=== PATIENT | female | born 1955 | race Two or more races ===

== ENCOUNTER 2016-07-18 10:05 | Emergency (ER) | payer OTHER ==
--- NOTE | 2016-07-18 10:39 | PDOC ---
History of Present Illness <Alice Schaffer - Last Filed: 07/18/16 10:59> - General History Source: Patient Exam Limitations: No Limitations <Giovanna Blake - Last Filed: 07/20/16 13:30> - General Stated Complaint: CHEST PAIN Time Seen by Provider: 07/18/16 10:10 - History of Present Illness Initial Comments: 07/18/16 11:00 The patient is a 61 year old female with significant past medical history of diverticulosis, arthritis, chronic back pain, multiple disc herniations, fibromyalgia, irritable bowel syndrome, bipolar disorder and OCD who presents to the emergency department with chest pain for 10 days. The patient states that her pain has been constant for the last week and is localized to the left chest. The pain radiates to her left arm. She denies associated lightheadedness , palpitations, or shortness of breath. She denies any dyspnea on exertion. The patient was admitted to [facility] in May 2016 for sepsis and had a stress test that was normal after having an elevated troponin level. The patient has been at a rehab center since discharge from [facility]. She denies any leg swelling or calf pain. The patient denies abdominal pain, nausea, vomiting, and diarrhea. She denies any fevers or chills. She denies recent sick contacts. She is a non- smoker. The patient is a poor historian. (Alice Schaffer) Past History <Alice Schaffer - Last Filed: 07/18/16 10:59> - Past Medical History Anemia: No Asthma: No Cancer: No Cardiac Disorders: No CVA: No COPD: No CHF: No Dementia: No Diabetes: No GI Disorders: Yes (gerd,diverticulitis,,ibs,hiatal hernia,lactose intolerance; ESO ULCER) Disorders: No HTN: No Hypercholesterolemia: No Liver Disease: No Seizures: No Thyroid Disease: No - Surgical History Abdominal Surgery: No Appendectomy: No Cardiac Surgery: No Cholecystectomy: Yes Lung Surgery: Yes (NODULE REMOVAL HISTOPLASMOSIS?) Neurologic Surgery: No Orthopedic Surgery: No - Psycho/Social/Smoking Cessation Hx Anxiety: No Suicidal Ideation: No Smoking Status: No Smoking History: Former smoker Have you smoked in the past 12 months: No If you are a former smoker, when did you quit?: 1970 'Breaking Loose' booklet given: 06/04/16 Hx Alcohol Use: Yes (in past, not actively drinking) Drug/Substance Use Hx: No Substance Use Type: Alcohol Hx Substance Use Treatment: Yes (15 years ago) <Giovanna Blake - Last Filed: 07/20/16 13:30> - Past Medical History Allergies/Adverse Reactions: Allergies Allergy/AdvReac Type Severity Reaction Status Date / Time ciprofloxacin [From Cipro] Allergy Severe Verified 06/06/16 14:46 Sulfa (Sulfonamide Allergy Severe Hives Verified 06/06/16 14:46 Antibiotics) ampicillin Allergy Intermediate Verified 06/06/16 14:21 gluten AdvReac Mild Verified 06/06/16 14:46 lactose AdvReac Mild Verified 06/06/16 14:45 Home Medications: Ambulatory Orders Clonazepam 0.5 mg PO TID PRN 12/29/13 Zolpidem Tartrate [Ambien] 10 mg PO HS #5 tablet 12/01/14 Divalproex *ER* [Depakote *ER* -] 500 mg PO DAILY 12/13/14 Cyclobenzaprine HCl [Flexeril -] 10 mg PO BID 08/25/15 Famotidine [Pepcid] 20 mg PO HS #0 tablet 08/25/15 Hyoscyamine Sulfate [Levsin 0.125MG Tablet -] 0.125 mg PO Q4H 08/25/15 Topiramate 100 mg PO TID 11/28/15 Venlafaxine HCl ER [Effexor Xr -] 75 mg PO DAILY 11/28/15 Oxycodone HCl/Acetaminophen [Percocet 10-325 mg Tablet] 1 each PO TID 06/04/16 Zolpidem Tartrate [Ambien] 10 mg PO HS 06/04/16 Cefuroxime Axetil [Ceftin -] 500 mg PO BID #10 tablet 06/12/16 Clonazepam [Klonopin -] 0.5 mg PO BID PRN #0 tablet MDD 2 06/12/16 Acetaminophen W/ Codeine #3 [Tylenol # 3 -] 1 tab PO Q6H PRN #12 tablet MDD 4 Cardiac Specific PMH - Complaint Specific PMHX Pacemaker: No <Giovanna Blake - Last Filed: 07/20/16 13:30> Review of Systems - Review of Systems Able to Perform ROS?: Yes <Alice Schaffer - Last Filed: 07/18/16 10:59> <HaydenGiovanna - Last Filed: 07/20/16 13:30> - Review of Systems Comments:: 07/18/16 11:00 GENERAL/CONSTITUTIONAL: No: fever, chills, weakness, loss of appetite. HEAD, EYES, EARS, NOSE AND THROAT: No: change in vision, ear pain, discharge, sore throat, throat swelling. CARDIOVASCULAR: +Chest pain. No: lightheadedness, palpitations, syncope RESPIRATORY: No: cough, shortness of breath, wheezing, hemoptysis, stridor. GASTROINTESTINAL: No: nausea, vomiting, abdominal cramping, diarrhea, rectal bleeding, constipation. GENITOURINARY: No: dysuria, hematuria, frequency, urgency, flank pain. MUSCULOSKELETAL: No: back pain, neck pain, joint pain, muscle swelling or pain SKIN AND BREASTS: No: lesions, pallor, rash or easy bruising. NEUROLOGIC: No: headache, vertigo, paresthesias, weakness ENDOCRINE: No: unexplained weight gain or loss HEMATOLOGIC/LYMPHATIC: No: anemia, easy bleeding, swelling nodes (Alice Schaffer) *Physical Exam <Alice Schaffer - Last Filed: 07/18/16 10:59> <HaydenGiovanna - Last Filed: 07/20/16 13:30> - Vital Signs Last Vital Signs Temp Pulse Resp BP Pulse Ox 98.2 F 76 16 119/81 96 07/18/16 15:14 07/18/16 15:14 07/18/16 15:14 07/18/16 15:14 07/18/16 15:14 - Physical Exam Comments: 07/18/16 11:00 GENERAL: The patient is in no acute distress. HEAD: Normal with no signs of trauma. EYES: PERRLA, EOMI, sclera anicteric, conjunctiva clear. ENT: Ears normal, nares patent, oropharynx clear without exudates. Moist mucous membranes. NECK: Normal range of motion, supple without lymphadenopathy, JVD, or masses. LUNGS: Breath sounds equal, clear to auscultation bilaterally. No wheezes, and no crackles. HEART: Regular rate and rhythm, normal S1 and S2 without murmur, rub or gallop. ABDOMEN: +Obese. Soft, nontender, normoactive bowel sounds. No guarding, no rebound. EXTREMITIES: Normal range of motion, no edema. No clubbing or cyanosis. No erythema, or tenderness. NEUROLOGICAL: Cranial nerves II through XII grossly intact. Normal speech. No focal neurological deficits. MUSCULOSKELETAL: Back non-tender to palpation, no CVA tenderness SKIN: Warm, Dry, normal turgor, no rashes or lesions noted. (Alice Schaffer) Heart Score/ECG Review <Alice Schaffer - Last Filed: 07/18/16 10:59> #1 ECG reviewed & interpreted by me at: 10:40 <Giovanna Blake - Last Filed: 07/20/16 13:30> #1 07/18/16 10:40 Twelve-lead EKG was performed and reviewed by me. There is normal sinus rhythm with a normal rate. The axis is normal. The intervals are normal. There are no ST or T wave abnormalities. Impression: Normal twelve-lead EKG (Giovanna Blake) ED Treatment Course - LABORATORY CBC & Chemistry Diagram: 07/18/16 10:11 07/18/16 10:44 <SarbjitAlice - Last Filed: 07/18/16 10:59> - LABORATORY CBC & Chemistry Diagram: 07/18/16 10:11 07/18/16 10:44 <Giovanna Blake - Last Filed: 07/20/16 13:30> - ADDITIONAL ORDERS Additional order review: 07/18/16 10:11 RBC 3.60 MCV 90.2 MCHC 32.1 RDW 16.5 H MPV 7.4 L Neutrophils % 40.2 L Lymphocytes % 46.7 H Monocytes % 8.9 Eosinophils % 3.9 Basophils % 0.3 D - RADIOLOGY Radiology Studies Ordered: Category Date Time Status CHEST CTA [CT] Stat CT Scan 07/18/16 12:01 Completed CHEST X-RAY PORTABLE* [RAD] Stat Radiology 07/18/16 10:12 Completed - Medications Given in the ED: ED Medications Discontinued Medications Generic Name Dose Route Start Last Admin Trade Name Freq PRN Reason Stop Dose Admin Morphine Sulfate 2 mg 07/18/16 11:24 07/18/16 11:32 Morphine Injection - IVPUSH 07/18/16 11:25 2 mg ONCE ONE Administration Medical Decision Making <Alice Schaffer - Last Filed: 07/18/16 10:59> <Giovanna Blake - Last Filed: 07/20/16 13:30> - Medical Decision Making 07/18/16 10:34 A portion of this note was documented by scribe services under my direction. I have reviewed the details of the note, within reason, and agree with the documentation with the following case summary and management plan written by me. Nursing documentation reviewed and incorporated into medical decision making 07/18/16 10:37 This is a 61-year-old female with a history of bipolar disorder, arthritis, fibromyalgia who had a recent admission for sepsis related to a urinary tract infection, pneumonia, complicated by positive troponin and upper GI bleed. During that hospitalization, patient had a pharmacological stress test which was negative Patient presents emergency department with a complaint of chest pain. Patient's chest pain began approximately 10 days ago, located in the left shoulder, radiates down to the chest. No associated shortness of breath. Patient status post recent cardiac workup which was negative including a Persantine stress test Differential includes cardiac ischemia, pe, asthma exacerbation, pneumonia, pneumothorax, pleural effusion, costochondritis, pericarditis, GERD. Will do labs Will do CXR Will contact Cardiology Will send D dimer 07/18/16 11:05 07/18/16 11:50 Laboratory Tests 07/18/16 07/18/16 07/18/16 10:11 10:11 10:44 WBC 6.4 D Hgb 10.4 L D Hct 32.5 D Plt Count 264 Neutrophils % 40.2 L Lymphocytes % 46.7 H INR 0.96 Sodium 141 Potassium 5.0 D Chloride 108 H Carbon Dioxide 24 BUN 25 H D Creatinine 0.9 Random Glucose 79 AST 217 H D ALT 20 D Creatine Kinase 58 Troponin I < 0.02 CXR: NML 07/18/16 11:50 07/18/16 14:29 CTA negative for PE Call placed to Dr wadsworth to review this case Pt states pain has improved Pt points mostly to the left shoulder as the site of her pain Will discharge to home PT tried following up with Dr Humphrey yesterday but was unable to make an appointment Pt will follow up in the next day Return to the ER for any other concerns or complaint Tylenol #3 for pain as needed Clinical impression: shoulder pain, atypical chest wall pain (Giovanna Blake) *DC/Admit/Observation/Transfer <Alice Schaffer - Last Filed: 07/18/16 10:59> - Discharge Dispostion Admit: No <Giovanna Blake - Last Filed: 07/20/16 13:30> Diagnosis at time of Disposition: Shoulder pain, left Qualifiers: Chronicity: acute Qualified Code(s): M25.512 - Pain in left shoulder - Discharge Dispostion Disposition: HOME Condition at time of disposition: Improved - Prescriptions Prescriptions: Acetaminophen W/ Codeine #3 [Tylenol # 3 -] 1 tab PO Q6H PRN #12 tablet MDD 4 PRN Reason: Pain - Referrals Referrals: Zachary Humphrey MD [Primary Care Provider] - - Patient Instructions Printed Discharge Instructions: DI for Shoulder Pain, DI for Atypical Chest Pain Additional Instructions: Gisselle Thank you for coming to the ER Please review your results Please follow up with your primary care physician within 2 days Please take medications as prescribed Please return to the ER for any other concerns or complaints - Attestations Scribe Attestion: 07/18/16 11:00 Documentation prepared by Alice Schaffer, acting as medical research scientist for Giovanna Blake MD. (Alice Schaffer)
[2016-07-18 10:49] LABS: BASOPHIL 0.3 % (0-2.0); EOSINOPHIL 3.9 % (0-4.5); MCHC 32.1 g/dl (32.0-36.0); MEAN CELL VOLUME 90.2 fl (80-96); MEAN PLT VOLUME 7.4 fl (7.5-11.1); NEUTROPHILS 40.2 % (42.8-82.8); PLATELET COUNT 264 K/MM3 (134-434); RDW 16.5 % (11.6-15.6); WHITE BLOOD COUNT 6.4 K/mm3 (4.0-10.0)
[2016-07-18 11:01] LABS: INR 0.96 (0.82-1.09); PROTHROMBIN TIME (PATIENT) 10.6 SEC (9.98-11.88)
[2016-07-18 11:23] LABS: ALBUMIN 3.2 g/dl (3.4-5.0); ANION GAP 9 (8-16); BILIRUBIN,TOTAL 0.2 mg/dL (0.2-1.0); CALCIUM 8.6 mg/dL (8.5-10.1); CO2 24 mmol/L (21-32); CREATININE 0.9 mg/dL (0.55-1.02); GLUCOSE,RANDOM 79 mg/dL (74-106); SGPT/ALT 20 U/L (12-78); TOT PROT 6.8 g/dl (6.4-8.2)
[2016-07-18] MEDS ORDERED: morphine CARPU-JECT 4 MG/1 ML DISP.SYRIN IVPUSH ONE (11:24)
[2016-07-18 11:26] LABS: ALK PHOS 99 U/L (45-117); TROPONIN I < 0.02 ng/ml (0.00-0.05)
[2016-07-18 11:28] LABS: MAGNESIUM 2.5 mg/dL (1.8-2.4); SGOT/AST 217 U/L (15-37)
[2016-07-18] MEDS ORDERED: morphine CARPU-JECT 2 MG/1 ML DISP.SYRIN ONE (11:28)
[2016-07-18 12:02] VITALS: BMI 35.4
--- NOTE | 2016-07-18 13:58 | EKG ---
Test Reason : Blood Pressure : / mmHG Vent. Rate : 086 BPM Atrial Rate : 086 BPM P-R Int : 140 ms QRS Dur : 082 ms QT Int : 362 ms P-R-T Axes : 027 027 026 degrees QTc Int : 433 ms NORMAL SINUS RHYTHM LOW VOLTAGE QRS BORDERLINE ECG WHEN COMPARED WITH ECG OF 06-JUN-2016 08:57, NONSPECIFIC T WAVE ABNORMALITY HAS REPLACED INVERTED T WAVES IN INFERIOR LEADS Confirmed by RICKEY DUKES, STERLING ([id number]) on 07/18/2016 1:57:43 PM Referred By: Confirmed By:STERLING LANG MD
[2016-07-18 15:16] VITALS: BP 119/81; PULSE 76; TEMP 98.2
== END 2016-07-18 15:24 | disposition home or self-care (01) ==
LOC: JER 10:05
PROC: 3E033NZ Introduction of Analgesics, Hypnotics, Sedatives into Peripheral Vein, Percutaneous Approach (ICD-10-PCS; principal; 2016-07-18)
DX: M25.512 Pain in left shoulder (principal); F31.9 Bipolar disorder, unspecified; M79.7 Fibromyalgia; K57.90 Diverticulosis of intestine, part unspecified, without perforation or abscess without bleeding; Z87.891 Personal history of nicotine dependence
CPT/HCPCS: 36415; 71010-TC; 71275-TC; 80053; 82550; 83735; 84484; 85025; 85379; 85610; 93005; 93010; 96374; 99281-25

== ENCOUNTER 2016-07-27 13:37 | Emergency (ER) | payer OTHER ==
[2016-07-27 13:52] VITALS: TEMP 97.7; BMI 37.0
[2016-07-27] MEDS ORDERED: ONDANSETRON 4 MG/2 ML VIAL IVPUSH ONE (14:40)
[2016-07-27] MEDS ORDERED: FAMOTIDINE 20 MG/50 ML IVPB 50 ML IVPB ONE ×2 (14:40→15:00)
[2016-07-27] MEDS ORDERED: SODIUM CHLORIDE 1,000 ML IV STA ×2 (14:40→17:53)
--- NOTE | 2016-07-27 14:45 | PDOC ---
History of Present Illness - General History Source: Patient Exam Limitations: No Limitations - History of Present Illness Initial Comments: CHIEF COMPLAINT: 61 y/o afebrile female c/o nausea and vomiting for the past few hours. HISTORY OF PRESENT ILLNESS: The patient denies f/c, PATTERSON, CP, SOB, abd pain, back pain, hematuria, dysuria. Vital signs on arrival are notable for BP of 155/109. REVIEW OF SYSTEMS: GENERAL/CONSTITUTIONAL: No fever/chills. No weakness. No weight change. HEAD, EYES, EARS, NOSE AND THROAT: No change in vision. No ear pain or discharge. No sore throat. CARDIOVASCULAR: No chest pain or shortness of breath. RESPIRATORY: No cough, wheezing, or hemoptysis. GASTROINTESTINAL: +nausea, vomiting. +feeling of diarrhea. GENITOURINARY: No dysuria, frequency, or change in urination. MUSCULOSKELETAL: No joint or muscle swelling or pain. No neck or back pain. SKIN: No rash or easy bruising. NEUROLOGIC: No headache, vertigo, loss of consciousness, or loss of sensation. PHYSICAL EXAM: GENERAL: The patient is awake, alert, and fully oriented, with vomit down the front of her face. HEAD: Normal with no signs of trauma. ENT: Pupils equal, round and reactive to light, extraocular movements intact, sclera anicteric, conjunctiva clear. Neck supple. LUNGS: Clear to auscultation bilaterally. Normal excursion. No respiratory distress or use of accessory muscles. CV: RRR, S1/S2, no MRG. Cap refill < 2 sec. ABDOMEN: Soft, non-distended, TTP of epigastric region. Normal BS x. 4. EXTREMITIES: Normal range of motion, no edema. NEUROLOGICAL: Normal speech, normal gait. CN II-XII grossly intact. PSYCH: Normal mood, normal affect. SKIN: Warm, dry, normal turgor, no rashes or lesions noted. <Berenice Bangura - Last Filed: 07/27/16 18:15> <Devin Sanchez - Last Filed: 07/27/16 20:30> - General Chief Complaint: Nausea/Vomiting Stated Complaint: ABD PAIN, VOMITING Time Seen by Provider: 07/27/16 13:59 Past History - Past Medical History Anemia: No Asthma: No Cancer: No Cardiac Disorders: No CVA: No COPD: No CHF: No Dementia: No Diabetes: No GI Disorders: Yes (gerd,diverticulitis,,ibs,hiatal hernia,lactose intolerance; ESO ULCER) Disorders: No HTN: No Hypercholesterolemia: No Liver Disease: No Seizures: No Thyroid Disease: No - Surgical History Abdominal Surgery: No Appendectomy: No Cardiac Surgery: No Cholecystectomy: Yes Lung Surgery: Yes (NODULE REMOVAL HISTOPLASMOSIS?) Neurologic Surgery: No Orthopedic Surgery: No - Psycho/Social/Smoking Cessation Hx Anxiety: No Suicidal Ideation: No Smoking Status: No Smoking History: Never smoked Have you smoked in the past 12 months: No If you are a former smoker, when did you quit?: 1970 'Breaking Loose' booklet given: 06/04/16 Hx Alcohol Use: No Drug/Substance Use Hx: No Substance Use Type: Alcohol Hx Substance Use Treatment: Yes (15 years ago) <Berenice Bangura - Last Filed: 07/27/16 18:15> <Devin Sanchez - Last Filed: 07/27/16 20:30> - Past Medical History Allergies/Adverse Reactions: Allergies Allergy/AdvReac Type Severity Reaction Status Date / Time ciprofloxacin [From Cipro] Allergy Severe Verified 07/27/16 13:52 Sulfa (Sulfonamide Allergy Severe Hives Verified 07/27/16 13:52 Antibiotics) ampicillin Allergy Intermediate Verified 07/27/16 13:52 gluten AdvReac Mild Verified 07/27/16 13:52 lactose AdvReac Mild Verified 07/27/16 13:52 Home Medications: Ambulatory Orders Clonazepam 0.5 mg PO TID PRN 12/29/13 Divalproex *ER* [Depakote *ER* -] 250 mg PO DAILY 12/13/14 Cyclobenzaprine HCl [Flexeril -] 10 mg PO BID 08/25/15 Famotidine [Pepcid] 20 mg PO HS #0 tablet 08/25/15 Hyoscyamine Sulfate [Levsin 0.125MG Tablet -] 0.125 mg PO QID 08/25/15 Venlafaxine HCl ER [Effexor Xr -] 75 mg PO DAILY 11/28/15 Zolpidem Tartrate [Ambien] 10 mg PO HS 06/04/16 Acetaminophen W/ Codeine #3 [Tylenol # 3 -] 1 tab PO Q6H PRN #12 tablet MDD 4 Ascorbate Calcium [Vitamin C] 500 mg PO TID 07/27/16 Docusate Sodium [Colace -] 100 mg PO HS 07/27/16 Famotidine [Pepcid -] 20 mg PO BID #10 tablet 07/27/16 Ferrous Sulfate [Feosol] 325 mg PO TID 07/27/16 Ondansetron [Zofran Odt -] 4 mg SL TID #10 od.tablet 07/27/16 Oxycodone HCl [Roxicodone -] 5 mg PO Q8H PRN 07/27/16 *Physical Exam - Vital Signs Last Vital Signs Temp Pulse Resp BP Pulse Ox 97.7 F 76 20 155/109 95 07/27/16 13:51 07/27/16 13:51 07/27/16 13:51 07/27/16 13:51 07/27/16 13:51 <Berenice Bangura - Last Filed: 07/27/16 18:15> - Vital Signs Last Vital Signs Temp Pulse Resp BP Pulse Ox 97.7 F 95 H 19 140/70 99 07/27/16 13:51 07/27/16 17:50 07/27/16 17:50 07/27/16 17:50 07/27/16 17:50 <Devin Sanchez - Last Filed: 07/27/16 20:30> ED Treatment Course - LABORATORY CBC & Chemistry Diagram: 07/27/16 14:55 07/27/16 14:55 <Berenice Bangura - Last Filed: 07/27/16 18:15> - LABORATORY CBC & Chemistry Diagram: 07/27/16 14:55 07/27/16 14:55 - ADDITIONAL ORDERS Additional order review: Laboratory Results 07/27/16 07/27/16 19:25 14:55 Sodium 141 Potassium 4.5 Chloride 104 Carbon Dioxide 26 Anion Gap 11 BUN 28 H Creatinine 1.0 Creat Clearance w eGFR 56.00 Random Glucose 141 H D Calcium 9.6 Total Bilirubin 0.4 D AST 23 D ALT 27 D Alkaline Phosphatase 104 Total Protein 7.8 Albumin 3.9 D Urine Color Ltyellow Urine Appearance Clear Urine pH 7.0 D Ur Specific [place] 1.014 Urine Protein Negative Urine Glucose (UA) Negative Urine Ketones 1+ H Urine Blood Negative Urine Nitrite Negative Urine Bilirubin Negative Urine Urobilinogen Negative Ur Leukocyte Esterase 1+ H D 07/27/16 14:55 RBC 4.03 MCV 88.5 MCHC 32.9 RDW 16.2 H MPV 7.5 Neutrophils % 74.9 D Lymphocytes % 17.2 D Monocytes % 5.8 Eosinophils % 0.9 Basophils % 1.2 D - Medications Given in the ED: ED Medications Discontinued Medications Generic Name Dose Route Start Last Admin Trade Name Martin PRN Reason Stop Dose Admin Diphenhydramine HCl 25 mg 07/27/16 17:53 07/27/16 18:05 Benadryl Injection - IVPUSH 07/27/16 17:54 25 mg ONCE ONE Administration Famotidine/Sodium Chloride 50 mls @ 100 mls/hr 07/27/16 14:40 07/27/16 15:00 Pepcid 20 Mg Premixed Ivpb - IVPB 07/27/16 15:09 100 mls/hr ONCE ONE Administration Sodium Chloride 1,000 mls @ 1,000 mls/hr 07/27/16 14:40 07/27/16 15:00 Normal Saline - IV 07/27/16 15:39 1,000 mls/hr ASDIR STA Administration Pantoprazole Sodium 40 mg/ 100 mls @ 200 mls/hr 07/27/16 15:08 07/27/16 16:15 Sodium Chloride IVPB 07/27/16 15:37 200 mls/hr ONCE ONE Administration Sodium Chloride 1,000 mls @ 1,000 mls/hr 07/27/16 17:53 07/27/16 18:05 Normal Saline - IV 07/27/16 18:52 1,000 mls/hr ASDIR STA Administration Metoclopramide HCl 10 mg 07/27/16 17:53 07/27/16 18:05 Reglan Injection - IVPB 07/27/16 17:54 10 mg ONCE ONE Administration Ondansetron HCl 4 mg 07/27/16 14:40 07/27/16 15:00 Zofran Injection IVPUSH 07/27/16 14:41 4 mg ONCE ONE Administration <Devin Sanchez - Last Filed: 07/27/16 20:30> Medical Decision Making - Medical Decision Making A/P: 61 y/o afebrile female with nausea and vomiting for the past few hours. Plan is as follows: 1. Labs 2. UA 3. IV fluids 4. IV zofran and pepcid Labs unremarkable. The patient states she now feels much better and is no longer vomiting. Will discharge to home with rx for zofran and pepcid. Instructed her to only intake fluids for the next few hours and then slowly advance bland diet. Instructed her to return to the ER with any worsening or concerning symptoms. The patient verbalizes understanding of all instructions, has no further questions and is awaiting discharge. As the nurse and I brought the discharge paperwork into the room the patient began vomiting again. Will give IV reglan and benadryl and another bag of IV fluids. I am signing this patient out to my colleague: BRENDA Sanchez In brief, this patient is being seen in the ED for a chief complaint of: vomiting and epigastric pain I have completed the initial assessment interview note and have ordered: labs, IV fluids, IV zofran, pepcid, protonix, reglan, benadryl I have reviewed the following results: labs Pending results are: none Please call the PCP: Zachary Humphrey Plan for disposition is as follows: Reassess after reglan and benadryl; po challenge <Berenice Bangura - Last Filed: 07/27/16 18:15> *DC/Admit/Observation/Transfer <Berenice Bangura - Last Filed: 07/27/16 18:15> <Devin Sanchez - Last Filed: 07/27/16 20:30> Diagnosis at time of Disposition: Vomiting Qualifiers: Vomiting type: unspecified Vomiting Intractability: non-intractable Nausea presence: with nausea Qualified Code(s): R11.2 - Nausea with vomiting, unspecified - Discharge Dispostion Disposition: HOME Condition at time of disposition: Improved - Prescriptions Prescriptions: Famotidine [Pepcid -] 20 mg PO BID #10 tablet Ondansetron [Zofran Odt -] 4 mg SL TID #10 od.tablet - Referrals Referrals: Zachary Humphrey MD [Primary Care Provider] - - Patient Instructions Printed Discharge Instructions: DI for Vomiting -- Adult, [place] Diet Additional Instructions: Discharge instructions: -Take zofran and pepcid as prescribed -Take small sips of room temperature liquids -In 6-8 hours, if feeling ok, slowly advance bland diet. -Return to the ER with any worsening or concerning symptoms LEGAL LIBRARIAN MEDICATIONS FROM PHARMACY Print Language: ICELANDIC Progress Note - Progress Note Progress Note: PATIENT REPORTS FEELING MUCH BETTER. PO CHALLENGE SUCCESSFUL. PLAN: D/C PATIENT TO HOME. <Devin Sanchez D - Last Filed: 07/27/16 20:30>
[2016-07-27] MEDS ORDERED: ONDANSETRON 4 MG/2 ML VIAL ONE (14:59)
[2016-07-27] MEDS ORDERED: PANTOPRAZOLE SODIUM 40 MG in SODIUM CHLORIDE 100 ML IVPB ONE (15:08)
[2016-07-27 15:16] LABS: BASOPHIL 1.2 % (0-2.0); EOSINOPHIL 0.9 % (0-4.5); MCH 29.1 pg (25.7-33.7); MCHC 32.9 g/dl (32.0-36.0); MEAN CELL VOLUME 88.5 fl (80-96); MEAN PLT VOLUME 7.5 fl (7.5-11.1); NEUTROPHILS 74.9 % (42.8-82.8); PLATELET COUNT 264 K/MM3 (134-434); RDW 16.2 % (11.6-15.6)
[2016-07-27 15:36] LABS: ALBUMIN 3.9 g/dl (3.4-5.0); BILIRUBIN,TOTAL 0.4 mg/dL (0.2-1.0); CALCIUM 9.6 mg/dL (8.5-10.1); TOT PROT 7.8 g/dl (6.4-8.2)
[2016-07-27] MEDS ORDERED: PANTOPRAZOLE SODIUM 100 ML IVPB ONE (16:09)
[2016-07-27] MEDS ORDERED: METOCLOPRAMIDE HCL INJECTION 10 MG/2 ML VIAL IVPB ONE (17:53)
[2016-07-27] MEDS ORDERED: METOCLOPRAMIDE HCL INJECTION 10 MG/2 ML VIAL ONE (18:01)
[2016-07-27 19:58] LABS: URINE APPEARANCE CLEAR; URINE BILIRUBIN NEGATIVE (NEGATIVE); URINE BLOOD NEGATIVE (NEGATIVE); URINE COLOR LTYELLOW; URINE GLUCOSE (UA) NEGATIVE (NEGATIVE); URINE KETONE 1+ (NEGATIVE); URINE NITRITE NEGATIVE (NEGATIVE); URINE PROTEIN NEGATIVE (NEGATIVE); URINE UROBILINOGEN NEGATIVE E.U./dl (0.2-1.0)
[2016-07-27 20:03] LABS: URINE LEUK ESTERASE 1+ (NEGATIVE)
[2016-07-27 21:24] VITALS: BP 144/93; PULSE 84
[2016-07-27 21:37] LABS: URINE BACTERIA RARE /hpf (NONE SEEN); URINE MUCUS RARE; URINE RBC 1 /hpf (0-3); URINE WBC <1 /hpf (3-5)
== END 2016-07-27 21:24 | disposition home or self-care (01) ==
LOC: JER 13:37
PROC: 3E033GC Introduction of Other Therapeutic Substance into Peripheral Vein, Percutaneous Approach (ICD-10-PCS; principal; 2016-07-27)
PROC: 3E033GC Introduction of Other Therapeutic Substance into Peripheral Vein, Percutaneous Approach (ICD-10-PCS; 2016-07-27)
PROC: 3E033GC Introduction of Other Therapeutic Substance into Peripheral Vein, Percutaneous Approach (ICD-10-PCS; 2016-07-27)
DX: R11.2 Nausea with vomiting, unspecified (principal); K21.9 Gastro-esophageal reflux disease without esophagitis; Z87.19 Personal history of other diseases of the digestive system
CPT/HCPCS: 36415; 80053; 81003; 81015; 85025; 96365; 96367; 96374; 96375; 99284-25

== ENCOUNTER 2017-02-13 12:34 | Emergency (ER) | payer OTHER ==
[2017-02-13 12:43] VITALS: BP 108/73; PULSE 78; TEMP 98.4; BMI 29.2
--- NOTE | 2017-02-13 15:00 | PDOC ---
History of Present Illness - General Chief Complaint: Urinary Problem Stated Complaint: UTI Time Seen by Provider: 02/13/17 14:52 History Source: Patient Exam Limitations: No Limitations - History of Present Illness Travel History: No Initial Comments: 02/13/17 14:53 Came to emergency department for continued pain and burning to fall the was some itching associated. States was seen by urgent care a few days ago and diagnosed with urinary tract infection. Educated with Macrobid which she has taken now for 3 days but has persistent burning. Patient states that the vaginal itching was not addressed at the urgent care Timing/Duration: reports: changing over time, intermittent Quality: reports: mild, moderate, sharpness Past History - Travel Traveled outside of the country in the last 30 days: No Close contact w/someone who was outside of country & ill: No - Past Medical History Allergies/Adverse Reactions: Allergies Allergy/AdvReac Type Severity Reaction Status Date / Time ciprofloxacin [From Cipro] Allergy Severe Verified 02/13/17 12:42 Sulfa (Sulfonamide Allergy Severe Hives Verified 02/13/17 12:42 Antibiotics) ampicillin Allergy Intermediate Verified 02/13/17 12:42 gluten AdvReac Mild Verified 02/13/17 12:42 lactose AdvReac Mild Verified 02/13/17 12:42 Home Medications: Ambulatory Orders Clonazepam 0.5 mg PO TID PRN 12/29/13 Divalproex *ER* [Depakote *ER* -] 250 mg PO DAILY 12/13/14 Cyclobenzaprine HCl [Flexeril -] 10 mg PO BID 08/25/15 Famotidine [Pepcid] 20 mg PO HS #0 tablet 08/25/15 Hyoscyamine Sulfate [Levsin 0.125MG Tablet -] 0.125 mg PO QID 08/25/15 Venlafaxine HCl ER [Effexor Xr -] 75 mg PO DAILY 11/28/15 Zolpidem Tartrate [Ambien] 10 mg PO HS 06/04/16 Acetaminophen W/ Codeine #3 [Tylenol # 3 -] 1 tab PO Q6H PRN #12 tablet MDD 4 Ascorbate Calcium [Vitamin C] 500 mg PO TID 07/27/16 Docusate Sodium [Colace -] 100 mg PO HS 07/27/16 Famotidine [Pepcid -] 20 mg PO BID #10 tablet 07/27/16 Ferrous Sulfate [Feosol] 325 mg PO TID 07/27/16 Ondansetron [Zofran Odt -] 4 mg SL TID #10 od.tablet 07/27/16 Oxycodone HCl [Roxicodone -] 5 mg PO Q8H PRN 07/27/16 Clotrimazole [Clotrimazole-7] 45 gm VG HS #1 cream.appl 02/13/17 Anemia: No Asthma: No Cancer: No Cardiac Disorders: No CVA: No COPD: No CHF: No Dementia: No Diabetes: No GI Disorders: Yes (gerd,diverticulitis,,ibs,hiatal hernia,lactose intolerance; ESO ULCER) Disorders: No HTN: No Hypercholesterolemia: No Liver Disease: No Seizures: No Thyroid Disease: No Other medical history: HERNIATED DISC IN BACK, ARHTRITIS - Surgical History Abdominal Surgery: No Appendectomy: No Cardiac Surgery: No Cholecystectomy: Yes Lung Surgery: Yes (NODULE REMOVAL HISTOPLASMOSIS?) Neurologic Surgery: No Orthopedic Surgery: No - Suicide/Smoking/Psychosocial Hx Smoking Status: No Smoking History: Never smoked Have you smoked in the past 12 months: No If you are a former smoker, when did you quit?: 1970 'Breaking Loose' booklet given: 06/04/16 Hx Alcohol Use: No Drug/Substance Use Hx: No Substance Use Type: Alcohol Hx Substance Use Treatment: Yes (15 years ago) Review of Systems - Review of Systems Able to Perform ROS?: Yes Is the patient limited [place] Citizen proficient: Yes Constitutional: Yes: Symptoms Reported, See HPI, Fever (fevers), Malaise HEENTM: Yes: See HPI. No: Symptoms Reported Respiratory: Yes: See HPI. No: Symptoms reported, Cough ABD/GI: Yes: Symptoms Reported : Yes: Symptoms Reported, See HPI, Burning Musculoskeletal: No: Symptoms Reported Integumentary: No: Symptoms Reported Neurological: No: Symptoms reported All Other Systems: Reviewed and Negative *Physical Exam - Vital Signs Last Vital Signs Temp Pulse Resp BP Pulse Ox 98.4 F 78 20 108/73 98 02/13/17 12:38 02/13/17 12:38 02/13/17 12:38 02/13/17 12:38 02/13/17 12:38 - Physical Exam General Appearance: Yes: Nourished, Appropriately Dressed. No: Apparent Distress HEENT: positive: LUKE, Normal ENT Inspection, Normal Voice, TMs Normal, Pharynx Normal Neck: positive: Supple. negative: Tender, Lymphadenopathy (R), Lymphadenopathy (L) Respiratory/Chest: positive: Lungs Clear, Normal Breath Sounds Female Pelvic Exam: negative: normal external exam (erythematous with some excoriation and dryness in patches on labia minor and white thick discharge noted at the vaginal introitus) Gastrointestinal/Abdominal: positive: Normal Bowel Sounds, Soft. negative: Tender, Guarding, Rebound, Tenderness Musculoskeletal: positive: Normal Inspection Progress Note - Progress Note Progress Note: Currently under treatment for urinary tract infection, culture was sent here after 3 days on Macrobid. We will add clotrimazole vaginal cream for (treatment and have follow-up with SERVICE COUNSELOR *DC/Admit/Observation/Transfer Diagnosis at time of Disposition: Candidiasis of perineum - Discharge Dispostion Condition at time of disposition: Stable Admit: No - Referrals Referrals: Ferny Mariee MD, [Primary Care Provider] - Iliana Bass MD [Staff Physician] - - Patient Instructions Printed Discharge Instructions: DI for Vaginal Yeast Infection Additional Instructions: Wash thoroughly with gentle soaps and dry thoroughly Clotromizole Cream nightly for 7 days as directed Complete course of Macrobid as directed May use Tylenol or Motrin for pain relief Follow-up with SERVICE COUNSELOR in 2-3 days or if worsening
[2017-02-13 15:18] LABS: URINE APPEARANCE CLOUDY; URINE BILIRUBIN NEGATIVE (NEGATIVE); URINE BLOOD 1+ (NEGATIVE); URINE COLOR AMBER; URINE GLUCOSE (UA) NEGATIVE (NEGATIVE); URINE KETONE NEGATIVE (NEGATIVE); URINE NITRITE NEGATIVE (NEGATIVE)
[2017-02-13 15:25] LABS: URINE LEUK ESTERASE 3+ (NEGATIVE); URINE PROTEIN 2+ (NEGATIVE)
[2017-02-13 15:28] LABS: URINE HYALINE CAST 30 /lpf; URINE MUCUS MANY; URINE RBC 8 /hpf (0-3); URINE WBC 86 /hpf (3-5)
== END 2017-02-13 15:45 | disposition home or self-care (01) ==
LOC: JER 12:34 → JERFT 12:34
DX: B37.49 Other urogenital candidiasis (principal); Z87.440 Personal history of urinary (tract) infections
CPT/HCPCS: 81003; 81015; 87086; 99281-25

== ENCOUNTER 2018-12-09 14:10 | Emergency (ER) | payer OTHER ==
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
[2018-12-09 14:24] VITALS: BP 121/70; PULSE 92; TEMP 98.5; BMI 32.3
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
== END 2018-12-09 16:58 | disposition home or self-care (01) ==
LOC: JER 14:10
DX: S39.012A Strain of muscle, fascia and tendon of lower back, initial encounter (principal); S16.1XXA Strain of muscle, fascia and tendon at neck level, initial encounter; M79.7 Fibromyalgia; M19.90 Unspecified osteoarthritis, unspecified site; F31.9 Bipolar disorder, unspecified; Z88.1 Allergy status to other antibiotic agents; Z88.2 Allergy status to sulfonamides; V43.62XA Car passenger injured in collision with other type car in traffic accident, initial encounter; Y93.89 Activity, other specified; Y92.410 Unspecified street and highway as the place of occurrence of the external cause
CPT/HCPCS: 70450-TC; 72125-TC; 99282-25

== ENCOUNTER 2019-04-17 10:24 | Inpatient (IN) | payer OTHER ==
--- NOTE | 2019-04-17 10:50 | PDOC ---
History of Present Illness - General Chief Complaint: Nausea/Vomiting Stated Complaint: VOMITING Time Seen by Provider: 04/17/19 10:49 History Source: Patient Exam Limitations: No Limitations - History of Present Illness Initial Comments: 04/17/19 11:04 MS. Rosas is a 63 yo F who presents via EMS with a complaint of nausea and vomiting She has a h/o of Hogue's esophagus/Schatzki's ring s/p dilation (most recent dilation 2015), h/o IBS (with diarrhea), histoplasmosis (s/p MILIND nodule resection), diverticulosis She reports that she noted that 5 days ago, she developed a choking sensation when she was eating at a restaurant. She gagged and brought up the food and then was able to proceed with dinner. She then noted that yesterday at 1 am, she awoke with vomiting. She has been unable to tolerate ANYTHING by mouth, including water. 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 HEAD, EYES, EARS, NOSE AND THROAT: No: change in vision, ear pain, discharge, sore throat, throat swelling. CARDIOVASCULAR: No: chest pain, lightheadedness, palpitations, syncope RESPIRATORY: No: cough, shortness of breath, wheezing, hemoptysis, stridor. GASTROINTESTINAL: Yes: nausea, vomiting, epigastric pain No: diarrhea, rectal bleeding, constipation. GENITOURINARY: No: dysuria, hematuria, frequency, urgency, flank pain. MUSCULOSKELETAL: No: back pain, neck pain, joint pain, muscle swelling or pain SKIN AND BREASTS: No: lesions, pallor, rash or easy bruising. NEUROLOGIC: No: headache, vertigo, paresthesias, weakness ENDOCRINE: No: unexplained weight gain or loss HEMATOLOGIC/LYMPHATIC: No: anemia, easy bleeding, swelling nodes. PE: GENERAL: The patient is in no acute distress, appears uncomfortable, emesis bag at bedside. HEAD: Normal . EYES: PERRLA, EOMI, sclera anicteric, conjunctiva clear. ENT: Ears normal, nares patent, oropharynx clear without exudates. Dry mucous membranes. NECK: Normal range of motion, supple LUNGS: Breath sounds equal, clear to auscultation bilaterally. No wheezes, and no crackles. HEART:Regular rate and rhythm, normal S1 and S2 without murmur, rub or gallop. ABDOMEN: Soft, epigastric tenderness, no involuntary guarding, no rebound. EXTREMITIES: Normal range of motion, no edema. NEUROLOGICAL: Cranial nerves II through XII grossly intact. Normal speech. No focal neurological deficits. MUSCULOSKELETAL: Back non-tender to palpation, no CVA tenderness SKIN: Warm, Dry, normal turgor, no rashes or lesions noted. 04/17/19 11:07 04/17/19 11:19 Is this a multiple visit Asthma Patient?: No Past History - Past Medical History Allergies/Adverse Reactions: Allergies Allergy/AdvReac Type Severity Reaction Status Date / Time ciprofloxacin [From Cipro] Allergy Severe Verified 04/17/19 11:25 Sulfa (Sulfonamide Allergy Severe Hives Verified 04/17/19 11:25 Antibiotics) ampicillin Allergy Intermediate Verified 04/17/19 11:25 gluten AdvReac Mild Verified 04/17/19 11:25 lactose AdvReac Mild Verified 04/17/19 11:25 Home Medications: Ambulatory Orders Clonazepam 0.5 mg PO TID PRN 12/29/13 Divalproex *ER* [Depakote *ER* -] 250 mg PO DAILY 12/13/14 Cyclobenzaprine HCl [Flexeril -] 10 mg PO BID 08/25/15 Famotidine [Pepcid] 20 mg PO HS #0 tablet 08/25/15 Hyoscyamine Sulfate [Levsin 0.125MG Tablet -] 0.125 mg PO QID 08/25/15 Venlafaxine HCl ER [Effexor Xr -] 75 mg PO DAILY 11/28/15 Zolpidem Tartrate [Ambien] 10 mg PO HS 06/04/16 Acetaminophen W/ Codeine #3 [Tylenol # 3 -] 1 tab PO Q6H PRN #12 tablet MDD 4 Ascorbate Calcium [Vitamin C] 500 mg PO TID 07/27/16 Docusate Sodium [Colace -] 100 mg PO HS 07/27/16 Famotidine [Pepcid -] 20 mg PO BID #10 tablet 07/27/16 Ferrous Sulfate [Feosol] 325 mg PO TID 07/27/16 Ondansetron [Zofran Odt -] 4 mg SL TID #10 od.tablet 07/27/16 oxyCODONE HCL [Roxicodone -] 5 mg PO Q8H PRN 07/27/16 Clotrimazole [Clotrimazole-7] 45 gm VG HS #1 cream.appl 02/13/17 Anemia: No Asthma: No Cancer: No Cardiac Disorders: No CVA: No COPD: No CHF: No Dementia: No Diabetes: No GI Disorders: Yes (gerd,diverticulitis,,ibs,hiatal hernia,lactose intolerance; ESO ULCER) Disorders: No HTN: No Hypercholesterolemia: No Liver Disease: No Seizures: No Thyroid Disease: No - Surgical History Abdominal Surgery: No Appendectomy: No Cardiac Surgery: No Cholecystectomy: Yes Lung Surgery: Yes (NODULE REMOVAL HISTOPLASMOSIS?) Neurologic Surgery: No Orthopedic Surgery: No - Psycho Social/Smoking Cessation Hx Smoking Status: No Smoking History: Never smoked Have you smoked in the past 12 months: No If you are a former smoker, when did you quit?: 1970 'Breaking Loose' booklet given: 06/04/16 Hx Alcohol Use: No Drug/Substance Use Hx: No Substance Use Type: Alcohol Hx Substance Use Treatment: Yes (15 years ago) ED Treatment Course - LABORATORY CBC & Chemistry Diagram: 04/17/19 11:02 04/17/19 11:02 Medical Decision Making - Medical Decision Making 04/17/19 11:21 63-year-old female presenting to the emergency department with a complaint of intractable vomiting. She has a history of a Schatzki's rings,? Hogue's esophagus Differential diagnosis in this patient is broad and includes: Recurrent esophageal stricture (patient is unable to tolerate both solids and liquids, making this diagnosis less likely) Pancreatitis, gastritis, gastric ulcer ACS We will do: Lab EKG Chest x-ray We will contact patient's GI doctor - Dr. Schafer EKG: Normal sinus rhythm, rate of 83 bpm, axis is normal, intervals are normal including QTC which is 467 MS, no ST elevations or depressions, T wave inversion noted in lead III 04/17/19 11:37 Laboratory Tests 04/17/19 11:02 WBC 7.3 Hgb 11.2 Hct 33.8 Plt Count 344 D CXR nml 04/17/19 11:55 Laboratory Tests 04/17/19 04/17/19 11:02 11:02 Sodium 141 Potassium 4.1 Chloride 111 H Carbon Dioxide 24 BUN 24.0 H Creatinine 1.1 Random Glucose 85 Creatine Kinase 47 Troponin I < 0.02 Total Amylase 51 [address] abd and pelvis 04/17/19 12:34 Pt remains nauseous Will order Zofran 04/17/19 15:41 CT: Hiatal hernia, no evidence of gastric distention, fatty infiltration of the liver, fecal retention, no acute pathology 04/17/19 15:41 04/17/19 15:43 Case reviewed with Carry from Dr Charlotte Andino Pt has not been seen since 2017 Last EGD-colonoscopy Results to be faxed 04/17/19 15:[address] Ruano Recommends: Protonix and Zofran 4mg q4 HRS x 4 DOSES [facility] ONLY Would start with conservative management 04/17/19 16:49 Discharge - Discharge Information Problems reviewed: Yes Clinical Impression/Diagnosis: Vomiting Qualifiers: Vomiting type: unspecified Vomiting Intractability: intractable Nausea presence : with nausea Qualified Code(s): R11.2 - Nausea with vomiting, unspecified Condition: Stable - Admission Yes - Follow up/Referral - Patient Discharge Instructions - Post Discharge Activity
[2019-04-17] MEDS ORDERED: FAMOTIDINE 20 MG/50 ML IVPB 20 MG/50 ML MG IVPB ONE ×2 (11:01→14:51)
[2019-04-17] MEDS ORDERED: HYOSCYAMINE SULFATE 0.125 MG *ODT PO ONE (11:01)
[2019-04-17] MEDS ORDERED: METOCLOPRAMIDE HCL INJECTION 10 MG/2 ML VIAL IVPUSH ONE (11:06)
[2019-04-17 11:21] LABS: BASO % 0.9 % (0-2.0); EOS % 2.5 % (0-4.5); HEMATOCRIT 33.8 % (32.4-45.2); HEMOGLOBIN 11.2 GM/dL (10.7-15.3); LYMPH % 17.9 % (8-40); MCH 29.7 pg (25.7-33.7); MCHC 33.1 g/dl (32.0-36.0); MEAN CELL VOLUME 89.7 fl (80-96); MEAN PLT VOLUME 7.1 fl (7.5-11.1); MONO % 8.2 % (3.8-10.2); NEUT % 70.5 % (42.8-82.8); PLATELET COUNT 344 K/MM3 (134-434); RBC 3.77 M/mm3 (3.60-5.2); RDW 16.8 % (11.6-15.6); WHITE BLOOD COUNT 7.3 K/mm3 (4.0-10.0)
[2019-04-17] MEDS ORDERED: METOCLOPRAMIDE HCL INJECTION 10 MG/2 ML VIAL ONE (11:48)
[2019-04-17 11:51] LABS: ALBUMIN 3.8 g/dl (3.4-5.0); BILIRUBIN,TOTAL 0.4 mg/dL (0.2-1); CALCIUM 8.7 mg/dL (8.5-10.1); CREATININE 1.1 mg/dL (0.55-1.3); POTASSIUM 4.1 mmol/L (3.5-5.1); TOT PROT 7.6 g/dl (6.4-8.2)
[2019-04-17 11:53] LABS: AMYLASE 51 U/L (25-115); LIPASE 137 U/L (73-393)
[2019-04-17] MEDS: SODIUM CHLORIDE 1,000 ML IV STA ×2 (11:57→18:58)
[2019-04-17] MEDS ORDERED: ONDANSETRON 4 MG/2 ML VIAL IVPUSH ONE ×2 (12:34→15:59)
[2019-04-17] MEDS ORDERED: ONDANSETRON 4 MG/2 ML VIAL ONE ×2 (14:50→16:54)
[2019-04-17] MEDS ORDERED: PANTOPRAZOLE SODIUM 40 MG VIAL IVPUSH ONE (15:59)
[2019-04-17] MEDS ORDERED: PANTOPRAZOLE SODIUM 40 MG VIAL ONE (16:54)
[2019-04-17 17:56] LABS: URINE APPEARANCE CLEAR; URINE COLOR YELLOW
[2019-04-17 17:57] LABS: URINE BILIRUBIN NEGATIVE (NEGATIVE); URINE GLUCOSE (UA) NEGATIVE (NEGATIVE); URINE KETONE 15 mg/dl (NEGATIVE)
[2019-04-17 17:58] LABS: PH,URINE 5.5 (5.0-8.0); URINE NITRITE POSITIVE (NEGATIVE); URINE PROTEIN NEGATIVE (NEGATIVE); URINE UROBILINOGEN 0.2 mg/dL (0.2-1.0)
[2019-04-17 17:59] LABS: URINE LEUK ESTERASE SMALL (NEGATIVE)
[2019-04-17 18:01] LABS: EPI CELLS 1.2 /HPF (0-5/HPF); URINE RBC 3.8 /hpf (0-4); URINE WBC 63.4 /hpf (0-5)
[2019-04-17 18:03] LABS: HYALINE CASTS 6.32 /lpf (0-8); URINE BACTERIA 1864.4 /hpf (NEGATIVE); URINE CRYSTALS 0.2 /hpf
--- NOTE | 2019-04-17 18:40 | CON.GI ---
Consult Consult Specialty:: coverage for Dr Davila - History of Present Illness History of Present Illness: 63 y/o F with multiple medical problems including Esophageal ulcers( EGD [address] Charlotte Andino) was admitted because of persistent nausea and vomiting. She also had episodes of vomiting recently ingested food. - Past Medical History Pulmonary: Yes: Other (histoplasmosis) Gastrointestinal: Yes: Diverticulosis, Irritable Bowel Disease Psych: Yes: Bipolar, Other Musculoskeletal: Yes: Chronic low back pain, Other (Disc Herniations) Rheumatology: Yes: Fibromyalgia - Alcohol/Substance Use Hx Alcohol Use: No History of Substance Use: reports: Prescription - Smoking History Smoking history: Former smoker Have you smoked in the past 12 months: No If you are a former smoker, when did you quit?: 1969 Home Medications - Allergies Allergies/Adverse Reactions: Allergies Allergy/AdvReac Type Severity Reaction Status Date / Time ciprofloxacin [From Cipro] Allergy Severe Verified 04/17/19 11:25 Sulfa (Sulfonamide Allergy Severe Hives Verified 04/17/19 11:25 Antibiotics) ampicillin Allergy Intermediate Verified 04/17/19 11:25 gluten AdvReac Mild Verified 04/17/19 11:25 lactose AdvReac Mild Verified 04/17/19 11:25 - Home Medications Home Medications: Ambulatory Orders Clonazepam 0.5 mg PO TID PRN 12/29/13 Divalproex *ER* [Depakote *ER* -] 250 mg PO DAILY 12/13/14 Cyclobenzaprine HCl [Flexeril -] 10 mg PO BID 08/25/15 Famotidine [Pepcid] 20 mg PO HS #0 tablet 08/25/15 Hyoscyamine Sulfate [Levsin 0.125MG Tablet -] 0.125 mg PO QID 08/25/15 Venlafaxine HCl ER [Effexor Xr -] 75 mg PO DAILY 11/28/15 Zolpidem Tartrate [Ambien] 10 mg PO HS 06/04/16 Acetaminophen W/ Codeine #3 [Tylenol # 3 -] 1 tab PO Q6H PRN #12 tablet MDD 4 Ascorbate Calcium [Vitamin C] 500 mg PO TID 07/27/16 Docusate Sodium [Colace -] 100 mg PO HS 07/27/16 Famotidine [Pepcid -] 20 mg PO BID #10 tablet 07/27/16 Ferrous Sulfate [Feosol] 325 mg PO TID 07/27/16 Ondansetron [Zofran Odt -] 4 mg SL TID #10 od.tablet 07/27/16 oxyCODONE HCL [Roxicodone -] 5 mg PO Q8H PRN 07/27/16 Clotrimazole [Clotrimazole-7] 45 gm VG HS #1 cream.appl 02/13/17 Physical Exam-GI Vital Signs: Vital Signs Temperature 98.5 F 04/17/19 17:57 Pulse Rate 94 H 04/17/19 17:57 Respiratory Rate 18 04/17/19 17:57 Blood Pressure 122/80 04/17/19 17:57 O2 Sat by Pulse Oximetry (%) 97 04/17/19 17:57 Labs: CBC, BMP 04/17/19 11:02 04/17/19 11:02
[2019-04-17] MEDS: DEXTROSE 5%-NORMAL SALINE 1,000 ML IV SCH (19:02)
[2019-04-17] MEDS: METOCLOPRAMIDE HCL INJECTION 10 MG/2 ML VIAL IVPB SCH (19:58)
[2019-04-17] MEDS: PANTOPRAZOLE SODIUM 40 MG VIAL IVPUSH SCH (21:16)
[2019-04-17] MEDS ORDERED: PANTOPRAZOLE SODIUM 40 MG in SODIUM CHLORIDE 100 ML IVPB SCH (22:00)
[2019-04-18] MEDS: METOCLOPRAMIDE HCL INJECTION 10 MG/2 ML VIAL IVPB SCH ×4 (00:24→17:45)
[2019-04-18] MEDS: ZOLPIDEM TARTRATE 5 MG TABLET PO PRN ×2 (00:25→23:20)
[2019-04-18] MEDS: DEXTROSE 5%-NORMAL SALINE 1,000 ML IV SCH ×3 (02:55→19:36)
[2019-04-18] MEDS: FERROUS SO4 325 MG TABLET (FP) PO SCH ×3 (06:31→21:57)
[2019-04-18] MEDS: clonazePAM 0.5 MG TABLET PO PRN ×3 (08:30→22:11)
[2019-04-18] MEDS ORDERED: PT OWN MED DRAWER 7, Y5N ONE (09:03)
[2019-04-18] MEDS: HEPARIN NA (PORCINE) 5,000 UNITS/ML 1ML VIAL SQ SCH ×2 (09:33→21:57)
[2019-04-18] MEDS: PANTOPRAZOLE SODIUM 40 MG VIAL IVPUSH SCH ×2 (09:34→22:11)
[2019-04-18] MEDS: VENLAFAXINE HCL 75 MG E.R. CAPSULES (FP) PO SCH (09:34)
[2019-04-18] MEDS: DIVALPROEX NA *ER* EXTEND REL 250 MG TABLET.SA PO SCH ×2 (09:34→13:42)
[2019-04-18 10:01] LABS: BASO % 0.8 % (0-2.0); EOS % 1.3 % (0-4.5); HEMATOCRIT 30.3 % (32.4-45.2); HEMOGLOBIN 9.9 GM/dL (10.7-15.3); LYMPH % 23.8 % (8-40); MCH 29.2 pg (25.7-33.7); MCHC 32.5 g/dl (32.0-36.0); MEAN CELL VOLUME 89.8 fl (80-96); MONO % 11.2 % (3.8-10.2); NEUT % 62.9 % (42.8-82.8); PLATELET COUNT 314 K/MM3 (134-434); RBC 3.38 M/mm3 (3.60-5.2); RDW 16.7 % (11.6-15.6); WHITE BLOOD COUNT 5.3 K/mm3 (4.0-10.0)
[2019-04-18 10:21] LABS: ALBUMIN 3.4 g/dl (3.4-5.0); BILIRUBIN,TOTAL 0.4 mg/dL (0.2-1); BLOOD UREA NITROGEN 14.2 mg/dL (7-18); CALCIUM 8.4 mg/dL (8.5-10.1); CREATININE 0.9 mg/dL (0.55-1.3); POTASSIUM 3.7 mmol/L (3.5-5.1); TOT PROT 6.9 g/dl (6.4-8.2)
--- NOTE | 2019-04-18 13:30 | HP ---
Admitting History and Physical - Past Medical History Pulmonary: Yes: Other (histoplasmosis) Gastrointestinal: Yes: Diverticulosis, Irritable Bowel Disease Psych: Yes: Bipolar, Other Musculoskeletal: Yes: Chronic low back pain, Other (Disc Herniations) Rheumatology: Yes: Fibromyalgia - Smoking History Smoking history: Former smoker Have you smoked in the past 12 months: No If you are a former smoker, when did you quit?: 1969 - Alcohol/Substance Use Hx Alcohol Use: No History of Substance Use: reports: Prescription Home Medications - Allergies Allergies/Adverse Reactions: Allergies Allergy/AdvReac Type Severity Reaction Status Date / Time ciprofloxacin [From Cipro] Allergy Severe Verified 04/17/19 11:25 Sulfa (Sulfonamide Allergy Severe Hives Verified 04/17/19 11:25 Antibiotics) ampicillin Allergy Intermediate Verified 04/17/19 11:25 gluten AdvReac Mild Verified 04/17/19 11:25 lactose AdvReac Mild Verified 04/17/19 11:25 - Home Medications Home Medications: Ambulatory Orders Clonazepam 0.5 mg PO TID PRN 12/29/13 Divalproex *ER* [Depakote *ER* -] 250 mg PO DAILY 12/13/14 Cyclobenzaprine HCl [Flexeril -] 10 mg PO BID 08/25/15 Famotidine [Pepcid] 20 mg PO HS #0 tablet 08/25/15 Hyoscyamine Sulfate [Levsin 0.125MG Tablet -] 0.125 mg PO QID 08/25/15 Venlafaxine HCl ER [Effexor Xr -] 75 mg PO DAILY 11/28/15 Zolpidem Tartrate [Ambien] 10 mg PO HS 06/04/16 Acetaminophen W/ Codeine #3 [Tylenol # 3 -] 1 tab PO Q6H PRN #12 tablet MDD 4 Ascorbate Calcium [Vitamin C] 500 mg PO TID 07/27/16 Docusate Sodium [Colace -] 100 mg PO HS 07/27/16 Famotidine [Pepcid -] 20 mg PO BID #10 tablet 07/27/16 Ferrous Sulfate [Feosol] 325 mg PO TID 07/27/16 Ondansetron [Zofran Odt -] 4 mg SL TID #10 od.tablet 07/27/16 oxyCODONE HCL [Roxicodone -] 5 mg PO Q8H PRN 07/27/16 Clotrimazole [Clotrimazole-7] 45 gm VG HS #1 cream.appl 02/13/17 Physical Examination Vital Signs: Vital Signs Temperature 98.5 F 04/18/19 06:00 Pulse Rate 71 04/18/19 06:00 Respiratory Rate 20 04/18/19 09:00 Blood Pressure 139/71 04/18/19 06:00 O2 Sat by Pulse Oximetry (%) 96 04/18/19 09:00 Labs: CBC, BMP 04/18/19 08:30 04/18/19 08:30
[2019-04-18] MEDS: DOCUSATE SODIUM 100 MG CAPSULE (FP) PO SCH (21:57)
[2019-04-19] MEDS: METOCLOPRAMIDE HCL INJECTION 10 MG/2 ML VIAL IVPB SCH ×3 (02:42→18:42)
[2019-04-19] MEDS: FERROUS SO4 325 MG TABLET (FP) PO SCH ×3 (06:09→22:23)
[2019-04-19] MEDS ORDERED: PT OWN MED DRAWER 7, Y5N ONE (10:31)
[2019-04-19] MEDS: VENLAFAXINE HCL 75 MG E.R. CAPSULES (FP) PO SCH ×2 (10:36→10:53)
[2019-04-19] MEDS: PANTOPRAZOLE SODIUM 40 MG VIAL IVPUSH SCH ×2 (10:36→22:23)
[2019-04-19] MEDS: DIVALPROEX NA *ER* EXTEND REL 250 MG TABLET.SA PO SCH (10:38)
[2019-04-19] MEDS: HEPARIN NA (PORCINE) 5,000 UNITS/ML 1ML VIAL SQ SCH ×2 (10:45→22:24)
[2019-04-19] MEDS: clonazePAM 0.5 MG TABLET PO PRN ×2 (11:31→22:24)
[2019-04-19 13:24] VITALS: BMI 31.0
--- NOTE | 2019-04-19 19:26 | PN ---
Progress Note, Physician History of Present Illness: Pt still has nausea and about 4 BM's today - Current Medication List Current Medications: Active Medications Clonazepam (Klonopin -) 0.5 mg PO TID PRN PRN Reason: ANXIETY Last Admin: 04/19/19 11:31 Dose: 0.5 mg Divalproex Sodium (Depakote *Er* -) 250 mg PO DAILY [facility] Last Admin: 04/19/19 10:38 Dose: Not Given Docusate Sodium (Colace -) 100 mg PO HS [facility] Last Admin: 04/18/19 21:57 Dose: Not Given Ferrous Sulfate (Feosol -) 325 mg PO TID [facility] Last Admin: 04/19/19 14:47 Dose: 325 mg Heparin Sodium (Porcine) (Heparin -) 5,000 unit SQ BID [facility] Last Admin: 04/19/19 10:45 Dose: 5,000 unit Dextrose/Sodium Chloride (D5-Ns -) 1,000 mls @ 125 mls/hr IV ASDIR [facility] Stop: 04/20/19 02:44 Last Admin: 04/18/19 19:36 Dose: Not Given Metoclopramide HCl (Reglan Injection -) 10 mg IVPB Q8H-IV [facility] Last Admin: 04/19/19 18:42 Dose: 10 mg Pantoprazole Sodium (Protonix Iv) 40 mg IVPUSH BID [facility] Last Admin: 04/19/19 10:36 Dose: 40 mg Venlafaxine HCl (Effexor Xr -) 75 mg PO DAILY [facility] Last Admin: 04/19/19 10:53 Dose: Not Given Zolpidem Tartrate (Ambien -) 5 mg PO HS PRN PRN Reason: INSOMNIA Last Admin: 04/18/19 23:20 Dose: 5 mg - Objective Vital Signs: Vital Signs Temperature 98.1 F 04/19/19 15:00 Pulse Rate 78 04/19/19 15:00 Respiratory Rate 20 04/19/19 15:00 Blood Pressure 152/77 04/19/19 15:00 O2 Sat by Pulse Oximetry (%) 96 04/18/19 21:00 Constitutional: Yes: Obese Neck: Yes: WNL, Supple Cardiovascular: Yes: WNL, Regular Rate and Rhythm Respiratory: Yes: WNL, Regular, CTA Bilaterally Gastrointestinal: Yes: WNL, Normal Bowel Sounds, Soft, Abdomen, Obese Labs: CBC, BMP 11/30/19 08:30 04/18/19 08:30 Problem List - Problems (1) Nausea and vomiting Assessment/Plan: Pt has been unable to tolerate PO Will try to advance diet to full liquids H/O Esophageal ulcers As per GI Cont IVF Code(s): R11.2 - NAUSEA WITH VOMITING, UNSPECIFIED (2) IBS (irritable bowel syndrome) Assessment/Plan: Cont hyoscyamine Code(s): K58.9 - IRRITABLE BOWEL SYNDROME WITHOUT DIARRHEA (3) Anxiety Assessment/Plan: Cont clonazepam H/O bipolar dz also Code(s): F41.9 - ANXIETY DISORDER, UNSPECIFIED
[2019-04-19] MEDS: DEXTROSE 5%-NORMAL SALINE 1,000 ML IV SCH (22:23)
[2019-04-19] MEDS: DOCUSATE SODIUM 100 MG CAPSULE (FP) PO SCH (22:23)
[2019-04-19] MEDS: ZOLPIDEM TARTRATE 5 MG TABLET PO PRN (22:24)
[2019-04-19] MEDS ORDERED: HYOSCYAMINE SULFATE 0.125 MG TABLET PO PRN (22:40)
[2019-04-19] MEDS ORDERED: DEXTROSE 5%-0.45% SALINE 1,000 ML IV SCH (22:45)
[2019-04-19] MEDS: TOPIRAMATE 25 MG TABLET (FP) PO SCH (23:18)
[2019-04-20] MEDS: METOCLOPRAMIDE HCL INJECTION 10 MG/2 ML VIAL IVPB SCH ×3 (02:51→17:19)
[2019-04-20] MEDS: FERROUS SO4 325 MG TABLET (FP) PO SCH ×3 (06:45→21:18)
[2019-04-20 09:00] LABS: EOS % 1.2 % (0-4.5); HEMATOCRIT 31.7 % (32.4-45.2); HEMOGLOBIN 10.4 GM/dL (10.7-15.3); LYMPH % 28.3 % (8-40); MCH 29.3 pg (25.7-33.7); MCHC 32.8 g/dl (32.0-36.0); MEAN CELL VOLUME 89.2 fl (80-96); MEAN PLT VOLUME 7.4 fl (7.5-11.1); NEUT % 61.5 % (42.8-82.8); PLATELET COUNT 325 K/MM3 (134-434); RBC 3.55 M/mm3 (3.60-5.2); RDW 16.2 % (11.6-15.6); WHITE BLOOD COUNT 7.3 K/mm3 (4.0-10.0)
[2019-04-20 09:27] LABS: ALBUMIN 3.6 g/dl (3.4-5.0); BILIRUBIN,TOTAL 0.4 mg/dL (0.2-1); BLOOD UREA NITROGEN 8.4 mg/dL (7-18); CALCIUM 9.4 mg/dL (8.5-10.1); CREATININE 0.8 mg/dL (0.55-1.3); POTASSIUM 3.5 mmol/L (3.5-5.1); TOT PROT 7.3 g/dl (6.4-8.2)
[2019-04-20] MEDS: TOPIRAMATE 25 MG TABLET (FP) PO SCH ×2 (11:00→21:23)
[2019-04-20] MEDS: PANTOPRAZOLE SODIUM 40 MG VIAL IVPUSH SCH ×2 (11:00→21:18)
[2019-04-20] MEDS: HEPARIN NA (PORCINE) 5,000 UNITS/ML 1ML VIAL SQ SCH ×2 (11:00→21:18)
--- NOTE | 2019-04-20 11:49 | EKG ---
Test Reason : Blood Pressure : / mmHG Vent. Rate : 083 BPM Atrial Rate : 083 BPM P-R Int : 150 ms QRS Dur : 082 ms QT Int : 398 ms P-R-T Axes : 056 005 001 degrees QTc Int : 467 ms NORMAL SINUS RHYTHM LOW VOLTAGE QRS CANNOT RULE OUT ANTERIOR INFARCT , AGE UNDETERMINED ABNORMAL ECG WHEN COMPARED WITH ECG OF 18-JUL-2016 10:17, NO SIGNIFICANT CHANGE WAS FOUND Confirmed by JONATHAN DUKES, SIMONE ([id number]) on 04/20/2019 11:49:19 AM Referred By: Confirmed By:SIMONE CASTILLO MD
[2019-04-20] MEDS: clonazePAM 0.5 MG TABLET PO PRN ×2 (14:53→22:40)
[2019-04-20] MEDS: DOCUSATE SODIUM 100 MG CAPSULE (FP) PO SCH (21:18)
--- NOTE | 2019-04-20 22:34 | PN ---
Progress Note, Physician History of Present Illness: Pt tolerated upper EGD No nausea/vomiting/diarrhea today - Current Medication List Current Medications: Active Medications Clonazepam (Klonopin -) 0.5 mg PO TID PRN PRN Reason: ANXIETY Last Admin: 04/20/19 14:53 Dose: 0.5 mg Docusate Sodium (Colace -) 100 mg PO HS REPLACED BY [facility] Last Admin: 04/20/19 21:18 Dose: 100 mg Ferrous Sulfate (Feosol -) 325 mg PO TID REPLACED BY [facility] Last Admin: 04/20/19 21:18 Dose: 325 mg Heparin Sodium (Porcine) (Heparin -) 5,000 unit SQ BID REPLACED BY [facility] Last Admin: 04/20/19 21:18 Dose: 5,000 unit Hyoscyamine Sulfate (Levsin -) 0.125 mg PO Q6H PRN PRN Reason: pain 5-10 Metoclopramide HCl (Reglan Injection -) 10 mg IVPB Q8H-IV REPLACED BY [facility] Last Admin: 04/20/19 17:19 Dose: 10 mg Pantoprazole Sodium (Protonix Iv) 40 mg IVPUSH BID REPLACED BY [facility] Last Admin: 04/20/19 21:18 Dose: 40 mg Topiramate (Topamax -) 50 mg PO BID REPLACED BY [facility] Last Admin: 04/20/19 21:23 Dose: Not Given Zolpidem Tartrate (Ambien -) 5 mg PO HS PRN PRN Reason: INSOMNIA Last Admin: 04/19/19 22:24 Dose: 5 mg - Objective Vital Signs: Vital Signs Temperature 98.6 F 04/20/19 18:00 Pulse Rate 88 04/20/19 18:00 Respiratory Rate 20 04/20/19 18:00 Blood Pressure 146/79 04/20/19 18:00 O2 Sat by Pulse Oximetry (%) 98 04/20/19 12:14 Cardiovascular: Yes: WNL, Regular Rate and Rhythm Respiratory: Yes: WNL, Regular, CTA Bilaterally Gastrointestinal: Yes: WNL, Normal Bowel Sounds, Soft, Abdomen, Obese Labs: CBC, BMP 04/20/19 08:05 04/20/19 08:05 Problem List - Problems (1) Nausea and vomiting Assessment/Plan: S/P upper EGD H/O Esophageal ulcers Advance diet DC planning for am As per GI Cont IVF Code(s): R11.2 - NAUSEA WITH VOMITING, UNSPECIFIED (2) IBS (irritable bowel syndrome) Assessment/Plan: Cont hyoscyamine Code(s): K58.9 - IRRITABLE BOWEL SYNDROME WITHOUT DIARRHEA (3) Anxiety Assessment/Plan: Cont clonazepam H/O bipolar dz also Code(s): F41.9 - ANXIETY DISORDER, UNSPECIFIED
[2019-04-20] MEDS: ZOLPIDEM TARTRATE 5 MG TABLET PO PRN (23:26)
[2019-04-21] MEDS: METOCLOPRAMIDE HCL INJECTION 10 MG/2 ML VIAL IVPB SCH ×2 (02:20→10:02)
[2019-04-21] MEDS: FERROUS SO4 325 MG TABLET (FP) PO SCH ×2 (05:44→14:23)
[2019-04-21] MEDS: clonazePAM 0.5 MG TABLET PO PRN ×2 (06:28→14:24)
[2019-04-21] MEDS: TOPIRAMATE 25 MG TABLET (FP) PO SCH (10:01)
[2019-04-21] MEDS: PANTOPRAZOLE SODIUM 40 MG VIAL IVPUSH SCH (10:02)
[2019-04-21] MEDS: HEPARIN NA (PORCINE) 5,000 UNITS/ML 1ML VIAL SQ SCH (10:02)
--- NOTE | 2019-04-21 14:01 | PATH ---
Surgical Pathology Report Patient Name: DOTTY HAYES [facility]. Rec. #: [id number] /Age/Gender: 1955 (Age: 63) / F Account: [id number] Location: [address] [place] [address]/[facility] Taken: 04/20/2019 Received: 04/20/2019 Reported: 04/21/2019 Physicians: Felicitas Jones M.D. Specimen(s) Received A: STOMACH B: DISTAL ESOPHAGUS C: PROXIMAL ESOPHAGUS Clinical History Nausea, vomiting, dysphagia Postoperative diagnosis: Esophagitis, gastritis Final Diagnosis A. STOMACH, BIOPSY: GASTRIC MUCOSA WITH MILD CHRONIC GASTRITIS. IMMUNOHISTOCHEMICAL STAIN FOR H. PYLORI IS NEGATIVE. B. DISTAL ESOPHAGUS, BIOPSY: SQUAMOUS MUCOSA WITH CHANGES OF MODERATE REFLUX TYPE ESOPHAGITIS. C. PROXIMAL ESOPHAGUS, BIOPSY: SQUAMOUS MUCOSA WITH VASCULAR CONGESTION AND CHANGES OF MILD REFLUX TYPE ESOPHAGITIS. Electronically Signed Christine Valderrama M.D. Gross Description A. Received in formalin, labeled "biopsy stomach" are 4 benson, irregular portions of soft tissue ranging from 0.2-0.4 cm. in greatest dimension. The specimens are submitted in toto in one cassette. B. Received in formalin, labeled "biopsy distal esophagus" are 3 benson, irregular portions of soft tissue ranging from 0.1-0.4 cm. in greatest dimension. The specimens are submitted in toto in one cassette. C. Received in formalin, labeled "biopsy proximal esophagus" are 4 benson, irregular portions of soft tissue ranging from 0.2-0.5 cm. in greatest dimension. The specimens are submitted in toto in one cassette. /04/20/201904/20/2019
[2019-04-21 16:06] VITALS: BP 133/81; PULSE 69; TEMP 99
== END 2019-04-21 16:21 | disposition home or self-care (01) | DRG 392 ==
LOC: JER 10:24 → JERBED 15:31 → J5S 17:51
PROVIDERS: ADMIT Internal Medicine; ATTEND Internal Medicine
PROC: 0DB58ZX Excision of Esophagus, Via Natural or Artificial Opening Endoscopic, Diagnostic (ICD-10-PCS; 2019-04-20)
PROC: 0DB68ZX Excision of Stomach, Via Natural or Artificial Opening Endoscopic, Diagnostic (ICD-10-PCS; principal; 2019-04-20 11:00)
DX: R11.2 Nausea with vomiting, unspecified (principal); K21.0 Gastro-esophageal reflux disease with esophagitis; K22.70 Barrett's esophagus without dysplasia; K58.9 Irritable bowel syndrome, unspecified; K22.2 Esophageal obstruction; F41.9 Anxiety disorder, unspecified; K29.50 Unspecified chronic gastritis without bleeding; E66.9 Obesity, unspecified; Z68.31 Body mass index [BMI] 31.0-31.9, adult
CPT/HCPCS: 36415; 71045-TC-FY; 74177-TC; 80053; 81003; 82150; 82550; 83690; 84484; 85025; 87086; 87186; 88305-TC; 93005; 93010; 99283-25; J1644; J7030; Q9967

== ENCOUNTER 2024-04-13 16:35 | Inpatient (IN) | payer OTHER ==
[2024-04-13 18:24] LABS: BASO % 0.7 % (0-2.0); EOS % 1.8 % (0-4.5); HEMATOCRIT 30.3 % (32.4-45.2); HEMOGLOBIN 9.5 GM/dL (10.7-15.3); LYMPH % 23.6 % (8-40); MCH 31.4 pg (25.7-33.7); MCHC 31.4 g/dl (32.0-36.0); MEAN CELL VOLUME 99.9 fl (80-96); MEAN PLT VOLUME 7.4 fl (7.5-11.1); MONO % 8.5 % (3.8-10.2); NEUT % 65.4 % (42.8-82.8); PLATELET COUNT 219 10^3/uL (134-434); RBC 3.03 M/mm3 (3.60-5.2); RDW 16.5 % (11.6-15.6); WHITE BLOOD COUNT 5.1 K/mm3 (4.0-10.0)
[2024-04-13 18:30] LABS: POTASSIUM 4.4 mmol/L (3.5-5.1)
[2024-04-13 18:32] LABS: CALCIUM 8.7 mg/dL (8.5-10.1)
[2024-04-13 18:33] LABS: ALBUMIN 3.4 g/dl (3.4-5.0); BLOOD UREA NITROGEN 15.2 mg/dL (7-18)
[2024-04-13 18:36] LABS: CREATININE 1.1 mg/dL (0.55-1.3)
[2024-04-13 18:37] LABS: BILIRUBIN,TOTAL 0.3 mg/dL (0.2-1); TOT PROT 7.3 g/dl (6.4-8.2)
[2024-04-13] MEDS ORDERED: THIAMINE HCL 200 MG/2 ML VIAL ONE (19:38)
[2024-04-13] MEDS: THIAMINE HCL 200 MG/2 ML VIAL IVPB ONE (19:43)
[2024-04-13 23:43] LABS: URINE BENZODIAZEPINES NEGATIVE (NEGATIVE)
[2024-04-13 23:44] LABS: METHADONE, UR NEGATIVE (NEGATIVE); OPIATES, URI NEGATIVE (NEGATIVE); PHENCYCLIDINE,URINE NEGATIVE (NEGATIVE)
[2024-04-13 23:56] LABS: COCAINE, UR NEGATIVE (NEGATIVE); URINE AMPHETAMINES NEGATIVE (NEGATIVE); URINE BARBITURATES NEGATIVE (NEGATIVE)
[2024-04-14] MEDS: THIAMINE HCL 200 MG/2 ML VIAL IVPB SCH (01:36)
[2024-04-14] MEDS: DEXTROSE 5%-NORMAL SALINE 1,000 ML IV SCH (01:36)
[2024-04-14 02:26] LABS: POTASSIUM 4.1 mmol/L (3.5-5.1)
[2024-04-14 02:28] LABS: CALCIUM 8.8 mg/dL (8.5-10.1)
[2024-04-14 02:29] LABS: ALBUMIN 3.3 g/dl (3.4-5.0); INR 0.86 (0.83-1.09); MAGNESIUM 2.3 mg/dL (1.8-2.4); PROTHROMBIN TIME (PATIENT) 9.8 SEC (9.7-13.0)
[2024-04-14 02:31] LABS: ACTIVATED PTT 30.2 SECONDS (25.2-36.5)
[2024-04-14 02:32] LABS: PHOSPHOROUS 4.2 mg/dL (2.5-4.9)
[2024-04-14 02:34] LABS: BILIRUBIN,TOTAL 0.3 mg/dL (0.2-1); TOT PROT 6.9 g/dl (6.4-8.2)
[2024-04-14 07:13] LABS: HEMATOCRIT 28.7 % (32.4-45.2); MCH 31.2 pg (25.7-33.7); MCHC 31.4 g/dl (32.0-36.0); MEAN CELL VOLUME 99.4 fl (80-96); MEAN PLT VOLUME 7.4 fl (7.5-11.1); PLATELET COUNT 212 10^3/uL (134-434); RBC 2.89 M/mm3 (3.60-5.2); RDW 16.1 % (11.6-15.6); WHITE BLOOD COUNT 4.6 K/mm3 (4.0-10.0)
[2024-04-14 07:30] LABS: POTASSIUM 3.6 mmol/L (3.5-5.1)
[2024-04-14 07:32] LABS: CALCIUM 8.7 mg/dL (8.5-10.1)
[2024-04-14 07:33] LABS: ALBUMIN 3.1 g/dl (3.4-5.0); BLOOD UREA NITROGEN 13.2 mg/dL (7-18)
[2024-04-14 07:36] LABS: CREATININE 0.9 mg/dL (0.55-1.3)
[2024-04-14 07:37] LABS: BILIRUBIN,TOTAL 0.3 mg/dL (0.2-1)
[2024-04-14 07:38] LABS: TOT PROT 6.7 g/dl (6.4-8.2)
[2024-04-14] MEDS ORDERED: THIAMINE HCL 200 MG/2 ML VIAL IVPB SCH (10:00)
[2024-04-14] MEDS: ENOXAPARIN NA (PORCINE) 40 MG/0.4 ML DISP.SYRIN SQ SCH (10:15)
[2024-04-14] MEDS: FOLIC ACID 1 MG TABLET (FP) PO SCH (10:16)
[2024-04-14] MEDS: LORazepam 1 MG TABLET PO PRN (13:53)
[2024-04-14 14:18] VITALS: BMI 30.4
[2024-04-14] MEDS: LORazepam 1 MG TABLET PO SCH (17:13)
[2024-04-14] MEDS: IBUPROFEN 600 MG TABLET (FP) PO PRN (20:28)
[2024-04-15 08:37] LABS: BASO % 1.2 % (0-2.0); EOS % 8.3 % (0-4.5); HEMATOCRIT 30.8 % (32.4-45.2); HEMOGLOBIN 9.9 GM/dL (10.7-15.3); LYMPH % 20.3 % (8-40); MCH 31.6 pg (25.7-33.7); MEAN CELL VOLUME 98.9 fl (80-96); MEAN PLT VOLUME 7.7 fl (7.5-11.1); MONO % 11.5 % (3.8-10.2); NEUT % 58.7 % (42.8-82.8); PLATELET COUNT 225 10^3/uL (134-434); RBC 3.11 M/mm3 (3.60-5.2); RDW 16.1 % (11.6-15.6); WHITE BLOOD COUNT 4.9 K/mm3 (4.0-10.0)
[2024-04-15 09:03] LABS: POTASSIUM 3.9 mmol/L (3.5-5.1)
[2024-04-15 09:18] LABS: BLOOD UREA NITROGEN 14.2 mg/dL (7-18)
[2024-04-15 09:19] LABS: CALCIUM 8.9 mg/dL (8.5-10.1)
[2024-04-15 09:20] LABS: ALBUMIN 3.1 g/dl (3.4-5.0); MAGNESIUM 2.1 mg/dL (1.8-2.4)
[2024-04-15 09:23] LABS: CREATININE 0.8 mg/dL (0.55-1.3)
[2024-04-15 09:24] LABS: BILIRUBIN,TOTAL 0.4 mg/dL (0.2-1); TOT PROT 6.6 g/dl (6.4-8.2)
[2024-04-15] MEDS: SUCRALFATE 1 GM TABLET (FP) PO SCH (10:15)
[2024-04-15] MEDS: ESCITALOPRAM OXALATE 10 MG TABLET PO SCH (10:15)
[2024-04-15] MEDS: PANTOPRAZOLE 40 MG TABLET PO SCH (10:15)
[2024-04-15] MEDS: NIFEdipine E.R. 30 MG TABLET PO SCH (10:16)
[2024-04-15] MEDS: prednisoLONE ACETATE 1% OPHTH SUSP 5 ML BOTTLE OU SCH (13:51)
[2024-04-15] MEDS: FAMOTIDINE 20 MG TABLET PO SCH (21:15)
[2024-04-16] MEDS: LORazepam 0.5 MG TABLET PO SCH (04:23)
[2024-04-16 06:31] LABS: BASO % 0.7 % (0-2.0); EOS % 8.3 % (0-4.5); HEMATOCRIT 31.9 % (32.4-45.2); HEMOGLOBIN 10.2 GM/dL (10.7-15.3); LYMPH % 22.5 % (8-40); MCH 31.4 pg (25.7-33.7); MCHC 32.1 g/dl (32.0-36.0); MEAN CELL VOLUME 97.9 fl (80-96); MONO % 11.7 % (3.8-10.2); NEUT % 56.8 % (42.8-82.8); PLATELET COUNT 266 10^3/uL (134-434); RBC 3.26 M/mm3 (3.60-5.2); RDW 15.8 % (11.6-15.6); WHITE BLOOD COUNT 5.2 K/mm3 (4.0-10.0)
[2024-04-16 06:48] LABS: POTASSIUM 3.6 mmol/L (3.5-5.1)
[2024-04-16 06:57] LABS: BLOOD UREA NITROGEN 9.4 mg/dL (7-18); CALCIUM 9.5 mg/dL (8.5-10.1)
[2024-04-16 06:58] LABS: ALBUMIN 3.2 g/dl (3.4-5.0); MAGNESIUM 2.2 mg/dL (1.8-2.4)
[2024-04-16 07:01] LABS: CREATININE 0.9 mg/dL (0.55-1.3)
[2024-04-16 07:02] LABS: BILIRUBIN,TOTAL 0.4 mg/dL (0.2-1); TOT PROT 6.9 g/dl (6.4-8.2)
[2024-04-16] MEDS: MAG HYDROX/AL HYDROX/SIMETH 30 ML UNIT-DOSE CUP PO ONE (10:59)
[2024-04-17] MEDS ORDERED: LORazepam 0.5 MG TABLET PO PRN
[2024-04-17 08:15] LABS: BASO % 1.1 % (0-2.0); EOS % 7.1 % (0-4.5); HEMATOCRIT 31.4 % (32.4-45.2); HEMOGLOBIN 10.1 GM/dL (10.7-15.3); LYMPH % 14.8 % (8-40); MCH 31.8 pg (25.7-33.7); MCHC 32.3 g/dl (32.0-36.0); MEAN CELL VOLUME 98.6 fl (80-96); MEAN PLT VOLUME 7.1 fl (7.5-11.1); MONO % 11.4 % (3.8-10.2); NEUT % 65.6 % (42.8-82.8); PLATELET COUNT 272 10^3/uL (134-434); RBC 3.19 M/mm3 (3.60-5.2); RDW 15.9 % (11.6-15.6); WHITE BLOOD COUNT 6.8 K/mm3 (4.0-10.0)
[2024-04-17 08:44] VITALS: BP 160/79; PULSE 79; RESP 18; TEMP 97.9
[2024-04-17 08:48] LABS: CALCIUM 9.5 mg/dL (8.5-10.1)
[2024-04-17 08:49] LABS: ALBUMIN 3.2 g/dl (3.4-5.0); BLOOD UREA NITROGEN 16.1 mg/dL (7-18); MAGNESIUM 2.3 mg/dL (1.8-2.4)
[2024-04-17 08:53] LABS: CREATININE 0.9 mg/dL (0.55-1.3)
[2024-04-17 08:54] LABS: BILIRUBIN,TOTAL 0.4 mg/dL (0.2-1); TOT PROT 6.7 g/dl (6.4-8.2)
== END 2024-04-17 11:10 | disposition home or self-care (01) | DRG 897 ==
LOC: JER 16:35 → JERBED 20:55 → OBSVTOIN 23:12 → J7W 23:42
PROVIDERS: ADMIT Student in an Organized Health Care Education/Training Program; ATTEND Nurse Practitioner Acute Care
PROC: HZ2ZZZZ Detoxification Services for Substance Abuse Treatment (ICD-10-PCS; principal; 2024-04-13)
DX: F10.229 Alcohol dependence with intoxication, unspecified (principal); D53.9 Nutritional anemia, unspecified; R74.01 Elevation of levels of liver transaminase levels; F32.A Depression, unspecified
CPT/HCPCS: 36415; 70450-TC; 70486-TC; 76700-TC; 80053; 80307; 82607; 82652; 83735; 84100; 85025; 85027; 85610; 85730; 86803; 93005; 93010; 93306-TC; 97116-GP; 97162-GP; 99285-25; G0378